=== PATIENT | female | born 2000 | race Caucasian/White ===

== ENCOUNTER 2019-10-02 18:39 | Emergency (ER) | payer MEDICAID, OTHER ==
[~2019-10-02] VITALS: Ht 182.9 cm; Wt 94.3 kg
[2019-10-02 19:06] VITALS: BP 121/57
[2019-10-02] MEDS ORDERED: diphenhdrAMINE HCL 25 MG CAP PO ONE (20:45)
[2019-10-02] MEDS ORDERED: ACETAMINOPHEN 500 MG TAB PO ONE (21:30)
== END 2019-10-02 22:08 | disposition home or self-care (01) ==
LOC: ER 18:39
DX: L03.113 Cellulitis of right upper limb (principal)

== ENCOUNTER → 2020-04-22 | Outpatient (CLI) | payer MEDICAID | END | disposition home or self-care (01) | LOC: LAB 10:50 | PROVIDERS: ATTEND Nurse Practitioner Family | DX: Z20.828 Contact with and (suspected) exposure to other viral communicable diseases (principal) | CPT/HCPCS: 36415; 87426 ==

== ENCOUNTER 2021-01-10 13:10 | Observation (INO) | payer MEDICAID ==
[2021-01-10 14:24] LABS: Alcohol, Urine < 3.0 mg/dL (0-10); Amphetamine Screen, Urine NEGATIVE (NEGATIVE); Barbiturate Scree,Urine NEGATIVE (NEGATIVE); Benzodiazephine Screen, Urine NEGATIVE (NEGATIVE); Cocaine Screen, Urine NEGATIVE (NEGATIVE); Opiate Scree,Urine NEGATIVE (NEGATIVE); Phencyclidine Screen, Urine NEGATIVE (NEGATIVE)
[2021-01-10 14:32] LABS: Cannabinoid Screen, Urine POSITIVE (NEGATIVE)
[2021-01-10 14:54] LABS: Basophils # (auto) 0 10 ^3/uL (0-0.2); Basophils % (auto) 0.2 % (0.0-2.0); Eosinophils # (auto) 0.2 10 ^3/uL (0-0.8); Eosinophils % (auto) 1.6 % (0.0-7.0); Hemoglobin 11.3 g/dL (12.2-16.2); Lymphocytes # (auto) 2.1 10 ^3/uL (0.4-5.4); Lymphocytes % (auto) 19.2 % (10.0-50.0); Mean Corpuscular Hemoglobin 30.8 pg (28.0-32.0); Mean Corpuscular Hgb Conc. 34.3 g/dL (32.0-36.0); Mean Corpuscular Volume 89.8 fL (80.0-100.0); Monocytes # (auto) 0.8 10 ^3/uL (0-1.3); Monocytes % (auto) 7.3 % (0.0-12.0); Neutrophils # (auto) 7.7 10 ^3/uL (1.6-8.6); Neutrophils % (auto) 71.7 % (37.0-80.0); Nucleated Red Blood Cells % 0.1 %; Red Blood Cells 3.68 10^6/uL (4.0-5.20); Red Cell Distribution Width 13.2 % (11.8-14.3); White Blood Cell 10.7 10^3/uL (4.4-10.8)
== END 2021-01-10 15:50 | disposition home or self-care (01) ==
LOC: LDRP 13:10
PROVIDERS: ADMIT Obstetrics & Gynecology Obstetrics; ATTEND Obstetrics & Gynecology Obstetrics
DX: O47.1 False labor at or after 37 completed weeks of gestation (principal); Z3A.37 37 weeks gestation of pregnancy; Z79.899 Other long term (current) drug therapy
CPT/HCPCS: 36415; 59025; 76805; 80307; 81002; 85025; 94760; G0378; G0379

== ENCOUNTER 2021-01-19 19:39 | Observation (INO) | payer MEDICAID ==
[2021-01-19 21:58] LABS: Basophils # (auto) 0 10 ^3/uL (0-0.2); Basophils % (auto) 0.1 % (0.0-2.0); Eosinophils # (auto) 0.1 10 ^3/uL (0-0.8); Eosinophils % (auto) 1.2 % (0.0-7.0); Hematocrit 34.3 % (36.0-46.0); Hemoglobin 11.6 g/dL (12.2-16.2); Lymphocytes # (auto) 2.3 10 ^3/uL (0.4-5.4); Lymphocytes % (auto) 18.6 % (10.0-50.0); Mean Corpuscular Hemoglobin 30.6 pg (28.0-32.0); Mean Corpuscular Volume 90.2 fL (80.0-100.0); Monocytes # (auto) 0.7 10 ^3/uL (0-1.3); Monocytes % (auto) 5.6 % (0.0-12.0); Neutrophils # (auto) 9.2 10 ^3/uL (1.6-8.6); Neutrophils % (auto) 74.5 % (37.0-80.0); Nucleated Red Blood Cells % 0.1 %; Red Cell Distribution Width 13.6 % (11.8-14.3); White Blood Cell 12.4 10^3/uL (4.4-10.8)
[2021-01-19 22:02] LABS: Urine Bacteria NONE SEEN /hpf (None Seen); Urine Blood Negative /uL (Negative); Urine Mucus FEW (None Seen); Urine Specific Gravity 1.015 (1.001-1.035); Urine WBC 1 /hpf (0 - 5)
[2021-01-19 22:17] LABS: Albumin 2.3 g/dL (3.4-5.0); Calcium 8.7 mg/dL (8.5-10.1); Potassium 3.4 mmol/L (3.5-5.1)
[2021-01-19 22:20] LABS: BUN/Creatinine Ratio 9.8; Bilirubin, Total 0.4 mg/dL (0.2-1.0); Total Protein 6.4 g/dL (6.4-8.2)
[2021-01-19 22:22] LABS: INR 0.92 (0.9-1.15); Partial Thromboplastin Time 24.8 sec (23.6-33.0)
[2021-01-19 22:28] LABS: Alcohol, Urine < 3.0 mg/dL (0-10); Amphetamine Screen, Urine NEGATIVE (NEGATIVE); Barbiturate Scree,Urine NEGATIVE (NEGATIVE); Benzodiazephine Screen, Urine NEGATIVE (NEGATIVE); Cannabinoid Screen, Urine POSITIVE (NEGATIVE); Cocaine Screen, Urine NEGATIVE (NEGATIVE); Opiate Scree,Urine NEGATIVE (NEGATIVE); Phencyclidine Screen, Urine NEGATIVE (NEGATIVE)
[2021-01-21 06:06] LABS: RPR Non Reactive (Non Reactive)
== END 2021-01-19 22:04 | disposition home or self-care (01) ==
LOC: LDRP 19:39
PROVIDERS: ADMIT Obstetrics & Gynecology; ATTEND Obstetrics & Gynecology
DX: O26.893 Other specified pregnancy related conditions, third trimester (principal); R10.30 Lower abdominal pain, unspecified; R60.0 Localized edema; O99.333 Smoking (tobacco) complicating pregnancy, third trimester; F17.200 Nicotine dependence, unspecified, uncomplicated; Z3A.38 38 weeks gestation of pregnancy
CPT/HCPCS: 36415; 59025; 76818; 80053; 80307; 81001; 81002; 85025; 85610; 85730; 86592; 86703; 86762; 86850; 86900; 86901; 87070; 87340; 87491; 87591; 94760; G0378; G0379

== ENCOUNTER 2021-01-25 21:13 | Inpatient (IN) | payer MEDICAID ==
[~2021-01-25] VITALS: Ht 182.9 cm; Wt 104.3 kg
[2021-01-25] MEDS ORDERED: LIDOCAINE 2%HCL (LOCAL ANESTH.) INJ 20ML MDV IJ PRN (23:00)
[2021-01-25] MEDS ORDERED: BUTORPHANOL TARTRATE 2 MG/1 ML VIAL IV PRN ×2 (23:00)
[2021-01-25] MEDS ORDERED: AZITHROMYCIN 250 MG TAB PO ONE ×2 (23:00→23:39)
[2021-01-25] MEDS ORDERED: PROMETHAZINE HCL 25 MG/ML 1ML IM PRN (23:00)
[2021-01-25] MEDS ORDERED: PHISODERM TOP SOLN 240ML BTL TOP PRN (23:00)
[2021-01-25] MEDS: LACTATED RINGER'S 1,000 ML IV SCH (23:45)
[2021-01-25 23:55] LABS: Basophils # (auto) 0.1 10 ^3/uL (0-0.2); Basophils % (auto) 0.5 % (0.0-2.0); Eosinophils # (auto) 0 10 ^3/uL (0-0.8); Eosinophils % (auto) 0.3 % (0.0-7.0); Hematocrit 33.2 % (36.0-46.0); Hemoglobin 11.5 g/dL (12.2-16.2); Lymphocytes % (auto) 15.8 % (10.0-50.0); Mean Corpuscular Hemoglobin 31.3 pg (28.0-32.0); Mean Corpuscular Hgb Conc. 34.6 g/dL (32.0-36.0); Mean Corpuscular Volume 90.4 fL (80.0-100.0); Monocytes # (auto) 0.4 10 ^3/uL (0-1.3); Monocytes % (auto) 3.4 % (0.0-12.0); Neutrophils # (auto) 9.9 10 ^3/uL (1.6-8.6); Red Blood Cells 3.67 10^6/uL (4.0-5.20); Red Cell Distribution Width 13.4 % (11.8-14.3); White Blood Cell 12.4 10^3/uL (4.4-10.8)
[2021-01-26] VITALS (10 sets, daily range): BP systolic 111–152; BP diastolic 58–92
[2021-01-26 00:13] LABS: INR 0.93 (0.9-1.15); Partial Thromboplastin Time 25.9 sec (23.6-33.0)
[2021-01-26 00:13] LABS: Urine Bacteria FEW /hpf (None Seen); Urine Blood 1+ /uL (Negative); Urine Mucus FEW (None Seen); Urine Specific Gravity 1.015 (1.001-1.035); Urine WBC 35 /hpf (0 - 5)
[2021-01-26 00:16] LABS: Albumin 2.4 g/dL (3.4-5.0); Calcium 8.3 mg/dL (8.5-10.1); Potassium 3.1 mmol/L (3.5-5.1)
[2021-01-26 00:19] LABS: Bilirubin, Total 0.5 mg/dL (0.2-1.0); Total Protein 6.6 g/dL (6.4-8.2)
[2021-01-26 00:21] LABS: Alcohol, Urine < 3.0 mg/dL (0-10); Amphetamine Screen, Urine NEGATIVE (NEGATIVE); Barbiturate Scree,Urine NEGATIVE (NEGATIVE); Benzodiazephine Screen, Urine NEGATIVE (NEGATIVE); Cannabinoid Screen, Urine POSITIVE (NEGATIVE); Cocaine Screen, Urine NEGATIVE (NEGATIVE); Opiate Scree,Urine NEGATIVE (NEGATIVE); Phencyclidine Screen, Urine NEGATIVE (NEGATIVE)
[2021-01-26] MEDS: LACTATED RINGER'S 1,000 ML IV SCH ×2 (01:09→11:58)
[2021-01-26] MEDS ORDERED: LIDOCAINE HCL 2 %PF INJ 10ML AMP IJ ONE (01:45)
[2021-01-26] MEDS ORDERED: ROPIVACAINE HCL 200 ML EPI SCH ×2 (01:45→03:30)
[2021-01-26] MEDS ORDERED: NALOXONE HCL 0.4 MG/ML VIAL IV ONE ×2 (01:45→03:30)
[2021-01-26] MEDS ORDERED: ePHEDrine SULFATE 50 MG/ML AMP IV ONE ×2 (01:45→03:30)
[2021-01-26] MEDS ORDERED: fentaNYL CITRATE 100 MCG/2 ML VL IV ONE ×2 (01:45→03:30)
[2021-01-26] MEDS ORDERED: cefTRIAXone 1GM/50ML D5W 50 ML IV ONE (01:45)
[2021-01-26] MEDS ORDERED: LACTATED RINGER'S 1,000 ML IV ONE (01:45)
[2021-01-26] MEDS ORDERED: SODIUM CHLORIDE 0.9% 500 ML IV PRN (03:30)
[2021-01-26] MEDS ORDERED: LACTATED RINGER'S 500 ML IV ONE (03:30)
[2021-01-26] MEDS ORDERED: LACT. RINGERS/OXYTOCIN 20UNITS 500 ML IV ONE ×2 (07:00→07:30)
[2021-01-26] MEDS ORDERED: METHYLERGONOVINE MALEATE 0.2 MG/ML AMP IM ONE (09:52)
[2021-01-26] MEDS: METHYLERGONOVINE MALEATE 0.2 MG/ML AMP IM ONE (10:00)
[2021-01-26] MEDS ORDERED: ONDANSETRON ODT 4 MG TAB PO PRN (11:30)
[2021-01-26] MEDS: IBUPROFEN 800 MG TAB PO PRN (11:43)
[2021-01-26] MEDS: ACETAMINOPHEN 325 MG TAB PO PRN (17:05)
[2021-01-26] MEDS: DOCUSATE SOD 100 MG CAP PO SCH (22:00)
[2021-01-27] MEDS: IBUPROFEN 800 MG TAB PO PRN ×2 (02:13→12:17)
[2021-01-27 03:00] VITALS: BP 145/71
[2021-01-27] MEDS: ACETAMINOPHEN 325 MG TAB PO PRN ×3 (04:31→22:53)
[2021-01-27 06:45] VITALS: BP 127/69
[2021-01-27 07:07] LABS: RPR Non Reactive (Non Reactive)
[2021-01-27] MEDS: DOCUSATE CALCIUM 240 MG CAP PO SCH (10:37)
[2021-01-27 11:00] VITALS: BP 134/76
[2021-01-27] MEDS: POTASSIUM CHL 20 Meq TABLET PO SCH (14:08)
[2021-01-27] MEDS: WITCH HAZEL-GLYCERIN PAD TOP PRN (14:12)
[2021-01-27] MEDS: DERMOPLAST 60ML BOTTLE TOP PRN (14:12)
[2021-01-27 14:33] VITALS: BP 133/86
[2021-01-27 19:21] VITALS: BP 115/62
[2021-01-27] MEDS: IBUPROFEN 600 MG TAB PO PRN (19:42)
[2021-01-27] MEDS: DOCUSATE SOD 100 MG CAP PO SCH (22:00)
[2021-01-27 22:56] VITALS: BP 139/81
[2021-01-28 03:20] VITALS: BP 125/70
[2021-01-28] MEDS: IBUPROFEN 600 MG TAB PO PRN (05:23)
[2021-01-28] MEDS: ACETAMINOPHEN 325 MG TAB PO PRN (07:53)
[2021-01-28 07:54] VITALS: BP 131/72
[2021-01-28] MEDS: POTASSIUM CHL 20 Meq TABLET PO SCH (10:51)
[2021-01-28] MEDS: DOCUSATE CALCIUM 240 MG CAP PO SCH (10:51)
[2021-01-28 11:20] VITALS: BP 136/79
[2021-01-28] MEDS ORDERED: IBUP600T27 PO (14:16)
[2021-01-28] MEDS ORDERED: DOCU-94 PO (14:17)
[2021-01-28] MEDS: DERMOPLAST 60ML BOTTLE TOP PRN (15:49)
[2021-01-28] MEDS: WITCH HAZEL-GLYCERIN PAD TOP PRN (15:49)
[2021-01-28 15:50] VITALS: BP 124/62
== END 2021-01-28 16:05 | disposition home or self-care (01) | DRG 560 ==
LOC: LDRP 21:13 → OBSVTOIN 22:20 → LDRP 22:21
PROVIDERS: ADMIT Obstetrics & Gynecology; ATTEND Obstetrics & Gynecology
PROC: 10D07Z6 Extraction of Products of Conception, Vacuum, Via Natural or Artificial Opening (ICD-10-PCS; principal; 2021-01-26)
PROC: 0KQM0ZZ Repair Perineum Muscle, Open Approach (ICD-10-PCS; 2021-01-26)
PROC: 0W8NXZZ Division of Female Perineum, External Approach (ICD-10-PCS; 2021-01-26)
PROC: 3E0R3BZ Introduction of Anesthetic Agent into Spinal Canal, Percutaneous Approach (ICD-10-PCS; 2021-01-26)
PROC: 00HU33Z Insertion of Infusion Device into Spinal Canal, Percutaneous Approach (ICD-10-PCS; 2021-01-26)
DX: O23.43 Unspecified infection of urinary tract in pregnancy, third trimester (principal); Z37.0 Single live birth; O98.82 Other maternal infectious and parasitic diseases complicating childbirth; O69.81X0 Labor and delivery complicated by cord around neck, without compression, not applicable or unspecified; O76 Abnormality in fetal heart rate and rhythm complicating labor and delivery; Z20.822 Contact with and (suspected) exposure to COVID-19; N39.0 Urinary tract infection, site not specified; O70.1 Second degree perineal laceration during delivery; Z3A.39 39 weeks gestation of pregnancy
CPT/HCPCS: 36415; 59025; 59409; 62282; 80053; 80307; 81001; 81002; 84550; 85025; 85610; 85730; 86592; 86850; 86900; 86901; 87426; 94760; 96360; 96361; 96365; 96366; 96372; G0378; J0696; J2590